=== PATIENT | female | born 1945 | race Caucasian/White ===

== ENCOUNTER 2022-06-23 20:10 | Observation (INO) | payer OTHER ==
[~2022-06-23] VITALS: Ht 167.6 cm; Wt 70.8 kg
[2022-06-23 20:12] VITALS: BP 131/62
[2022-06-23] MEDS ORDERED: ALBUTEROL SULFATE/IPRATROPIU 3 ML SOL IH ONE (21:10)
[2022-06-23 21:28] LABS: BASOPHILS # (AUTO) 0.1 K/uL (0.00-0.22); EOSINOPHILS # (AUTO) 0.2 K/uL (0-0.4); EOSINOPHILS % (AUTO) 1.8 % (0.0-4.0); HEMATOCRIT 37.7 % (36-48); LYMPHOCYTES % (AUTO) 11.3 % (20.5-51.1); MEAN CORPUSCULAR HEMOGLOBIN 25 pg (27-31); MEAN CORPUSCULAR HGB CONC 32 g/dL (33-37); MEAN CORPUSCULAR VOLUME 79.1 fL (80-94); MONOCYTES # (AUTO) 0.6 K/uL (0.8-1.0); NEUTROPHILS # (AUTO) 7.3 K/uL (1.8-7.7); NEUTROPHILS % (AUTO) 79.9 % (42.2-75.2); PLATELET COUNT (AUTO) 217 K/uL (140-450); RED BLOOD CELL COUNT(AUTO) 4.77 MIL/uL (4.20-5.40); RED CELL DISTRIBUTION WIDTH 16.5 % (11.6-13.7); WHITE BLOOD COUNT (AUTO) 9.2 K/uL (4.8-10.8)
[2022-06-23 21:49] LABS: ALBUMIN 3.4 g/dL (3.4-5.0); ANION GAP 13.6 (8-16); ASPARTATE AMINOTRANSFERASE 119 U/L (15-37); CARBON DIOXIDE 26.5 mmol/L (21-32); CHLORIDE 104 mmol/L (98-107); CREATININE 1.2 mg/dL (0.6-1.3); GLUCOSE 242 mg/dL (74-106); POTASSIUM 3.1 mmol/L (3.5-5.1); SODIUM SERUM 141 mmol/L (136-145); TOTAL BILIRUBIN 1.2 mg/dL (0.0-1.0); UREA NITROGEN, BLOOD 13 mg/dL (7-18)
[2022-06-23] MEDS ORDERED: AMIO200T66 PO (22:12)
[2022-06-23] MEDS ORDERED: METO25TA PO (22:12)
[2022-06-23] MEDS ORDERED: APIX2.5 PO (22:12)
[2022-06-23] MEDS ORDERED: ASPI-1749 PO (22:12)
[2022-06-23] MEDS ORDERED: DAPA5TAB PO (22:12)
[2022-06-23] MEDS ORDERED: VITA1TAB44 PO (22:12)
[2022-06-23] MEDS ORDERED: INSU100S22 SUBQ (22:12)
[2022-06-24] MEDS ORDERED: ONDANSETRON 4 MG/2 ML VIAL IVP PRN (00:30)
[2022-06-24] MEDS ORDERED: ACETAMINOPHEN 325 MG TAB PO PRN (00:30)
[2022-06-24] MEDS ORDERED: MORPHINE SULFATE 2 MG/ML SYR IVP PRN (00:30)
[2022-06-24] MEDS ORDERED: NACL 0.9% 1,000 ML IV SCH (00:30)
[2022-06-24 01:05] VITALS: BP 112/58
[2022-06-24 04:00] VITALS: BP 115/61
[2022-06-24 08:00] VITALS: BP 113/45
[2022-06-24] MEDS ORDERED: MECLIZINE 25 MG TAB PO PRN (09:10)
[2022-06-24] MEDS ORDERED: POTASSIUM CHLORIDE 10 MEQ TABER PO SCH (09:15)
[2022-06-24] MEDS ORDERED: BUMETANIDE 1 MG TAB PO SCH (09:30)
[2022-06-24 12:00] VITALS: BP 131/57
[2022-06-24] MEDS ORDERED: MECL-303 PO (16:01)
[2022-06-24 16:10] VITALS: BP 131/57
== END 2022-06-24 16:40 | disposition home or self-care (01) ==
LOC: MED 20:10 → MTU 06-24 00:35
PROVIDERS: ADMIT Hospitalist; ATTEND Hospitalist
DX: R42 Dizziness and giddiness (principal); Z20.822 Contact with and (suspected) exposure to COVID-19; I11.0 Hypertensive heart disease with heart failure; I50.20 Unspecified systolic (congestive) heart failure; R55 Syncope and collapse; E11.9 Type 2 diabetes mellitus without complications; R06.02 Shortness of breath; I25.10 Atherosclerotic heart disease of native coronary artery without angina pectoris; I21.4 Non-ST elevation (NSTEMI) myocardial infarction; I24.8 Other forms of acute ischemic heart disease; E78.5 Hyperlipidemia, unspecified; M79.89 Other specified soft tissue disorders; Z95.1 Presence of aortocoronary bypass graft; Z79.899 Other long term (current) drug therapy
CPT/HCPCS: 36415; 71046; 80053; 83880; 84484; 85025; 87081; 87426; 93005; 94640; 94760; 96360; 96361; 99285; G0378